=== PATIENT | female | born 1990 | race Asian ===

== ENCOUNTER → 2021-03-17 15:31 | Outpatient (CLI) | payer OTHER, SELFPAY ==
[2021-03-17 16:12] LABS: Add Manual Diff / Slide Review NO; Basophils Absolute Auto 0 /uL (0-100); Basophils Percent Auto 0.4 % (0-2); Eosinophils Absolute Auto 100 /uL (0-450); Eosinophils Percent Auto 0.7 % (2-4); Hematocrit 41.7 % (36-46); Hemoglobin 13.7 g/dL (12.0-16.0); Lymphocytes Absolute Auto 2300 /uL (1100-4500); Lymphocytes Percent Auto 19.2 % (25-40); Mean Corpuscular HGB Conc 32.9 % (30-36); Mean Corpuscular Hemoglobin 28.9 PG (26-34); Mean Corpuscular Volume 87.8 fL (80-100); Monocytes Absolute Auto 700 /uL (0-900); Neutrophils Absolute Auto 8800 /uL (1500-7000); Neutrophils Percent Auto 73.7 % (50-75); Platelet Count 333 X10^3/uL (150-400); Red Blood Cell Count 4.75 X10^6/uL (4.0-5.2); Red Cell Distribution Width 13.4 % (11.6-14.8); White Blood Cell Count 11.9 X10^3/uL (4.5-11.0)
[2021-03-17 18:12] LABS: Appearance Urine UA CLEAR; Bilirubin Urine UA NEGATIVE (NEGATIVE); Color Urine UA YELLOW; Glucose Urine UA NEGATIVE (Negative); Ketones Urine UA NEGATIVE (NEGATIVE); Leukocyte Esterase Urine UA NEGATIVE (NEGATIVE); Nitrite Urine UA NEGATIVE (Negative); Occult Blood Urine UA TRACE-LYSED (Negative); Protein Urine UA NEGATIVE (Negative); Specific Gravity Urine UA <=1.005 (1.000-1.035); Urobilinogen Urine UA 0.2 E.U./dL (0.2)
[2021-03-18 12:09] LABS: RPR Screen Non Reactive (Non Reactive); Varicella IgG Antibody 704 index (Immune >165)
[2021-03-20 16:20] LABS: Hep C Virus Ab w/Reflex Quant NEGATIVE s/c (NEGATIVE); Hepatitis B Surface Antigen NEGATIVE s/c (NEGATIVE)
[2021-03-20 16:21] LABS: HIV 1 & 2 Ab/Ag 4th Gen Combo NEGATIVE (NEGATIVE); Rubella Antibody IgG 37.6 IU/mL (>15)
== END ==
PROVIDERS: Referring Provider Specialist; Visit Provider Specialist
DX: Z34.81 Encounter for supervision of other normal pregnancy, first trimester (principal)
CPT/HCPCS: 36415; 80055; 81003; 86787; 86803; 86850; 86900; 86901; 87086; 87389

== ENCOUNTER → 2021-04-13 09:09 | Outpatient (CLI) | payer OTHER, SELFPAY ==
[2021-04-13 13:47] LABS: Urine N gonorrhoeae NOT DETECTED
[2021-04-13 13:53] LABS: Urine Chlamydia NOT DETECTED
== END ==
PROVIDERS: Visit Provider Specialist
DX: Z34.81 Encounter for supervision of other normal pregnancy, first trimester (principal); Z3A.13 13 weeks gestation of pregnancy
CPT/HCPCS: 87491; 87591

== ENCOUNTER → 2021-05-11 08:26 | Outpatient (CLI) | payer OTHER, SELFPAY ==
[2021-05-13 18:37] LABS: AFP, Serum 30.9 ng/mL (.); Calc Gestational Age Ultrasound (.); Inhibin A, Dimeric 88.08 pg/mL (.); Maternal Ethnicity Other (.); Maternal Weight 161 lbs (.); Number of Fetuses No (.); OSBR Risk 1 IN 10000 (.); Results Report (.); Test Results *Screen Negative* (.); hCG, MoM 0.83 (.); hCG, Serum 25506 mIU/mL (.)
== END ==
PROVIDERS: Referring Provider Specialist; Visit Provider Specialist
DX: Z34.82 Encounter for supervision of other normal pregnancy, second trimester (principal); Z3A.17 17 weeks gestation of pregnancy
CPT/HCPCS: 36415; 82105; 82677; 84702; 86336

== ENCOUNTER → 2021-06-02 07:33 | Outpatient (CLI) | payer OTHER, SELFPAY ==
--- NOTE | 2021-06-02 07:34 | DI.US.S_ITS ---
PROCEDURE: US OB >= 14 WEEKS FETUS INDICATIONS: ANATOMY OUTSIDE/PRIOR DATING DATA: Last menstrual period (LMP): Unknown. LMP-based estimated date of delivery (ROBERT): Unknown . First dating scan (date and location): 03/17/2021, [facility] Estimated date of delivery (ROBERT) from first dating scan: 10/20/2021. TECHNIQUE: Real-time scanning was performed of the fetus, with image documentation and biometric measurements. Endovaginal scanning: Not performed COMPARISON: [facility], , OB <= 14 WEEKS FETUS, 03/17/2021, 15:11. [facility], , US OB >= 14 WEEKS FETUS, 05/11/2021, 8:13. FINDINGS: General: A single living intrauterine gestation is present. Presentation: Variable Placenta: Placental position is posterior , without previa. Amniotic fluid index: 16.8 cm, normal range is 5-24 cm. heart rate: 165 beats per minute. Maternal cervical canal: 6.0 cm long. Normal lower limit is 2.5 cm. biometrics: Biparietal diameter: 4.9 cm, 20 weeks 5 days Head circumference: 17.5 cm, 20 weeks 0 days Abdominal circumference: 16.7 cm, 21 weeks 5 days Femur length: 3.2 cm, 20 weeks 1 day Estimated gestational age from initial scan: not applicable. Composite gestational age from present scan: 20 weeks 5 days Estimated weight and percentile: 89th percentile Measurement variability for biometric dating: +/- 7 days from 14 weeks to 15 weeks 6 days gestation, +/- 10 days from 16 weeks to 21 weeks 6 days gestation, +/- 2 weeks from 22 weeks to 27 weeks 6 days gestation, +/- 3 weeks for 28 weeks gestation or later. weight reference: 4500 g or EFW >90/95% is considered macrosomia or large for gestational age. EFW <10% is small for gestational age. EFW 5% or less is considered intra-uterine growth restriction. Anatomic survey: Neuro: Ventricles are non-dilated at less than 10 mm. Cisterna magna is normal at 3-11 mm. Cerebellum is normal in size and morphology. Nuchal skin fold: Normal at less than 6 mm between 14-21 weeks gestational age. Face: Nose and lips, facial profile are normal. Spine: No evidence for spina bifida. Heart: 4-chambered heart is present, with normal ventricular outflow tracts. Left ventricular echogenic intracardiac focus. Diaphragm: Diaphragm is intact. Stomach: Left-sided stomach is present. Kidneys: No hydronephrosis. Normal is less than 5 mm in 2nd trimester, less than 7 mm in 3rd trimester. Cord: 3-vessel cord has orthotopic insertion. Bladder: Normal in size. Extremities: All 4 extremities identified. IMPRESSION: 1. Living single intrauterine 2nd trimester . 2. Current ultrasound age is 5 days greater than clinical age based on initial ultrasound. 3. Left ventricular echogenic intracardiac focus, typically an incidental finding. 4. Otherwise unremarkable anatomy scan. Dictated by: Norberto Adams M.D. on 06/02/2021 at 13:36 Approved by: Norberto Adams M.D. on 06/02/2021 at 14:13
== END ==
PROVIDERS: Referring Provider Specialist; Visit Provider Specialist
DX: Z34.82 Encounter for supervision of other normal pregnancy, second trimester (principal); Z3A.20 20 weeks gestation of pregnancy
CPT/HCPCS: 76811

== ENCOUNTER → 2021-07-14 14:47 | Outpatient (CLI) | payer OTHER, SELFPAY ==
[2021-07-14 16:56] LABS: Hematocrit 35.1 % (36-46); Hemoglobin 11.7 g/dL (12.0-16.0)
[2021-07-14 17:29] LABS: GTT (PREG) 1 Hour PP 50gm Dose 128 mg/dL (76-139)
== END ==
PROVIDERS: Referring Provider Specialist; Visit Provider Specialist
DX: Z34.82 Encounter for supervision of other normal pregnancy, second trimester (principal); Z3A.22 22 weeks gestation of pregnancy
CPT/HCPCS: 36415; 82950; 85014; 85018

== ENCOUNTER 2021-09-23 09:58 | Inpatient (IN) | payer OTHER, SELFPAY ==
--- NOTE | 2021-09-23 10:59 | PM.OBHP.IH.1 ---
OB HPI Date/Time Date of admission: 09/23/21 Date Patient Seen: 09/23/21 Time Patient Seen: 11:15 History of Present Condition Chief complaint: OBSERVATION ROBERT Calculator Estimated Delivery Date Method Current WG Current Estimate 10/18/21 Ultrasound #1 36w 3d Other Estimates 10/04/21 LMP (Certain) 38w 3d : 2 Para: 0 Narrative: 31-year-old at 36 weeks and 3 days gestation. She got up at approximately 9:00 a.m. this morning and had persistent leaking of clear fluid. She also had some slight bloody discharge. Baby has been active and she denies contractions. Fluid continues to leak. complicated by PUPP, otherwise uncomplicated care with Dr. Stein. care: good care, initiated at week # (9), number of visits (10) and pounds weight gain (32) Dating criteria OB: based on 1st trimester US only Ultrasounds: normal mid trimester US (Left ventricular echogenic intracardiac focus, otherwise normal anatomy, negative quad screen) Preadmission Labs Last OB Lab Results: Blood Type B Positive 03/17/21 15:34 03/17/21 Antibody Screen Negative 03/17/21 15:34 03/17/21 Hematocrit 35.1 % (36-46) L 07/14/21 15:58 07/14/21 Hemoglobin 11.7 g/dL (12.0-16.0) L 07/14/21 15:58 07/14/21 Hepatitis B Surface Antigen Negative s/c (NEGATIVE) 03/17/21 15:34 03/17/21 Hepatitis C Antibody Negative s/c (NEGATIVE) 03/17/21 15:34 03/17/21 Rubella Antibody 37.6 IU/mL (>15) 03/17/21 15:34 03/17/21 Varicella-Zoster IgG Antibody 704 index (Immune >165) 03/17/21 15:34 03/17/21 Glucose 1 Hour 128 mg/dL (76-139) 07/14/21 15:58 07/14/21 Group B Streptococcus (PCR) Pending 09/23/21 10:50 09/23/21 -: Chlamydia screen: negative and Gonorrhea screen: negative Genetic Screens: Quad screen: Normal Prior (ies) Past Pregnancies Del. Date GA/Weeks Labor Lgth Wt Sex Route Outcome Anesthesia Place Delv Breastfeed Preg Comp Name 03/12/17 6 Delivery Date: 03/12/17 Last Updated by: Little Berrios R.N. Had D&C to complete. Evaluation Evaluation Baseline heart rate: 140 Variability: Moderate (11-25) monitor accelerations: Present Monitor Decelerations: Absent Contraction Frequency (minutes): 3 Category of Tracing: Reactive Status: Category l Dilation (cm): 1 Effacement: 60-70% station: -1 Non-invasive Membranes Rupture Test: positive [facility] Medical History Fibroids (~2016) Hyperlipidemia (~07/2020) Hypertension (~07/2020) Left knee dislocation (~10/2020) Miscarriage (~2016) Palpitations (~2019) PCOS (polycystic ovarian syndrome) (~2009) Scoliosis (~2009) Surgical History H/O removal of cyst (~2019) History of removal of skin mole (~02/21/21) [place] teeth removed (~2017) Family History Mother Hypertension Hyperlipidemia High triglycerides Father Diabetes mellitus Stroke Kidney failure Hypertension Myocardial infarction Grandmother Hypertension Grandfather Congestive heart failure Hypertension Diabetes mellitus High triglycerides Grandmother Hypertension Diabetes mellitus Hyperlipidemia Grandfather Hypertension Diabetes mellitus Sister Hypertension affecting Diabetes mellitus Hypertension Social History marital status: number of children: 0 household members: spouse lives independently: Yes (Base housing. 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 ) substance use type: does not use during the past year weight has: increased > 10 lbs well-balanced diet: daily or most days daily servings fruits/ve or more times/day caffeine: No Type(s) of exercise: none Meds Home Medications and Allergies Home Medications Medication Instructions Recorded Confirmed Type aspirin 81 mg chewable tablet 81 mg PO DAILY #30 tab 04/13/21 09/19/21 Rx prenat.vits,viviana,qjj-[id number] 1 tab PO DAILY #30 tab 04/13/21 09/19/21 Rx fluconazole 150 mg tablet 150 mg PO Q3D #2 tab 08/17/21 09/19/21 Rx (Diflucan) cetirizine 10 mg capsule 10 mg PO DAILY PRN #30 cap 09/12/21 09/19/21 Rx Allergies Allergy/AdvReac Type Severity Reaction Status Date / Time No Known Drug Allergies Allergy Verified 09/19/21 09:48 Review of Systems Review of Systems ROS: Yes All systems reviewed with the patient and are negative except as otherwise documented OB Exam Narrative Exam Narrative: Temperature 36.2? blood pressure 137/81 heart rate 107 HENMT Head: normal to inspection Mouth: oral mucosae normal Eyes General: appearance normal, both eyes and all related structures Resp Effort & Inspection: normal respiratory effort Auscultation: clear to auscultation bilaterally Cardio Rate: regular rate Rhythm: regular rhythm Heart Sounds: S1 normal and S2 normal Extremities Lower extremity: No normal to inspection (Erythematous macules and papules over lower extremities) Presentation: vertex Estimated Weight (lbs): 6 Amniotic Fluid: clear Assessment and Plan Assessment and Plan Assessment and Plan narrative: 31-year-old at 36 weeks and 3 days with spontaneous rupture of membranes at home with clear fluid at 9:00 a.m.. She is romeo though not yet in labor. GBS is pending. Discussed increased risk of infection given rupture of membranes and recommended initiation of Pitocin 4 hours from rupture if not yet entering labor on her own. She may eat lunch now then will plan to start Pitocin at 1:00 p.m.. Will obtain at labs and COVID swab now. Epidural upon request. Anticipate .
[2021-09-23 12:05] LABS: Add Manual Diff / Slide Review NO; Basophils Absolute Auto 300 /uL (0-100); Basophils Percent Auto 3.1 % (0-2); Eosinophils Absolute Auto 400 /uL (0-450); Eosinophils Percent Auto 4.4 % (2-4); Hematocrit 41.2 % (36-46); Hemoglobin 13.9 g/dL (12.0-16.0); Lymphocytes Absolute Auto 800 /uL (1100-4500); Lymphocytes Percent Auto 7.9 % (25-40); Mean Corpuscular HGB Conc 33.7 % (30-36); Mean Corpuscular Hemoglobin 30.1 PG (26-34); Mean Corpuscular Volume 89.4 fL (80-100); Monocytes Absolute Auto 400 /uL (0-900); Monocytes Percent Auto 3.9 % (3-14); Neutrophils Absolute Auto 7700 /uL (1500-7000); Neutrophils Percent Auto 80.7 % (50-75); Platelet Count 237 X10^3/uL (150-400); Red Cell Distribution Width 15.5 % (11.6-14.8); White Blood Cell Count 9.5 X10^3/uL (4.5-11.0)
[2021-09-23 12:07] LABS: Strep Grp B PCR NEG for Grp B Strep
[2021-09-23 12:19] LABS: COVID19 -Nasal RAPID Negative (Negative)
[2021-09-23] MEDS: BETAMETHASONE 30 MG/5 ML MDV 12 MG IM (12:45)
[2021-09-23] MEDS: LACTATED RINGERS 1,000 ML 100 ML IV (14:03)
[2021-09-23] MEDS: OXYTOCIN PREMIX 30 UNIT/500 ML PLAST..BAG IV (14:04)
--- NOTE | 2021-09-23 17:45 | PM.OBPNLAB ---
Date/Time Date Patient Seen: 09/23/21 Time Patient Seen: 17:15 Pain Control Pain control: tolerating well Pelvic Exam station: -1 Comments: exam deferred due to PROM, patient starting to feel contractions Contractions Pitocin rate (mU/min): 4 Contraction frequency (min): 2 Contraction pattern: Regular Status status: Category l Heart Rate Baseline: 130 Monitor Accelerations: Present Monitor Decelerations: Absent Monitor Variability: Moderate Comments: VSS Assessment and Plan Assessment: induction ongoing Plan: continuous present management Comments: This patient presented with PPROM, romeo asymptomatically and augmented with pitocin. Patient would like epidural eventually, for cervical exam at that time.
[2021-09-23 18:49] VITALS: BP 126/53
[2021-09-24] VITALS (8 sets, daily range): BP systolic 91–115; BP diastolic 48–62; PULSE 113–121; RESP 20–25; TEMP 36.3–37.5; O2SAT 98–100
[2021-09-24] MEDS: ePHEDrine 50 MG/ML VIAL 10 MG IV (01:56)
[2021-09-24] MEDS: FENT 2MCG/ML BUPIV 0.125% EPI 200 MCG/100 ML PLAST..BAG 12 MCG EPIDURAL (02:51)
--- NOTE | 2021-09-24 05:52 | P.PNOB_ITS ---
Date/Time Date Patient Seen: 09/24/21 Time Patient Seen: 05:52 Pelvic Exam Dilation (cm): 9 Effacement (%): 100 station: 0 Amniotic membrane status: Ruptured Contractions Contraction frequency (min): 3 Contraction pattern: Regular Status status: Category ll Heart Rate Baseline: 145 Monitor Accelerations: Present Monitor Decelerations: Absent Monitor Variability: Minimal (period of minimal and moderate variability) Comments: + scalp stim Assessment and Plan Plan: continuous present management Comments: 31 year old at 36 weeks and 4 days gestation who presented with PPROM. She has progressed well overnight but has had issues with hypotension secondary to epidural with subsequent late decelerations. Decelerations resolve with ephedrine and fluid boluses. Pitocin was shut off however now no cervical change number operator the last hour. Will restart pitocin and utilize the peanut ball to help with descent.
[2021-09-24] MEDS: LACTATED RINGERS 1,000 ML 100 ML IV ×4 (08:40→23:24)
--- NOTE | 2021-09-24 10:19 | PM.OBPNLAB ---
Date/Time Date Patient Seen: 09/24/21 Time Patient Seen: 09:20 Pain Control Pain control: tolerating well and epidural Pelvic Exam Dilation (cm): 10 Effacement (%): 100 station: +1 Amniotic membrane status: Ruptured Contractions Pitocin rate (mU/min): 14 Contraction frequency (min): 4 Contraction pattern: Regular Status status: Category l Heart Rate Baseline: 135 Monitor Accelerations: Present Monitor Decelerations: Absent Monitor Variability: Moderate Assessment and Plan Comments: Begin pushing.
--- NOTE | 2021-09-24 12:38 | PM.OBPNLAB ---
Date/Time Date Patient Seen: 09/24/21 Time Patient Seen: 13:00 Pain Control Pain control: epidural Pelvic Exam Dilation (cm): 10 Effacement (%): 100 station: +1 Amniotic membrane status: Ruptured Contractions Contraction pattern: Regular Status status: Category l Assessment and Plan Comments: Patient has been pushing for 3 hours with good effort but minimal descent. She is ROT with significant caput and molding and a markedly narrow pubic arch. Cesaerean section was discussed with the patient by Dr. Espino and consents were signed.
--- NOTE | 2021-09-24 12:45 | PM.OBPNLAB ---
Date/Time Date Patient Seen: 09/24/21 Time Patient Seen: 12:30 Pain Control Pain control: tolerating well and epidural Pelvic Exam Dilation (cm): 10 Effacement (%): 100 station: +1 Amniotic membrane status: Ruptured Contractions Pitocin rate (mU/min): 18 Contraction frequency (min): 3 Contraction pattern: Regular Status status: Category l Heart Rate Baseline: 145 Monitor Accelerations: Present Monitor Decelerations: Early Monitor Variability: Moderate Assessment and Plan Plan: Comments: 31 year old at 36 weeks and 4 days gestation who presented with PPROM. She has now been ruptured over 24 hours and approaching 24 hours of pitocin. No significant descent despite pushing for three hours. Will proceed with low transverse section for arrest of descent. Dr. Quintero consulted. Will give cefazolin and azithromycin prior to surgery. Discussed risks including bleeding, infection and injury to bowel, bladder or surrounding organs. All questions answered, consent signed.
--- NOTE | 2021-09-24 12:50 | PM.PREOP ---
Pre-operative Note COVID-19 COVID-19 status: Negative Result date/Date tested (Pos, Neg/Pending): 09/23/21 Interval Note History & Physical reviewed/Exam performed by Physician: Yes Changes to H&P: No
[2021-09-24] MEDS: AZITHROMYCIN 500 MG in DEXTROSE 5% IN WATER 250 ML IV (13:26)
[2021-09-24] MEDS: CEFAZOLIN 2 GM/20 ML SYRINGE IV (13:42)
--- NOTE | 2021-09-24 13:53 | SUR.OPER ---
Supine on Padded OR bed, head on pillow, safety belt at thigh, arms secured on padded arm boards at <90 degrees abduction. Bump under right buttock. Legs uncrossed with pillow under knees, gel pad to heels, tape over blanket to lower legs.
--- NOTE | 2021-09-24 14:01 | SUR.OPER ---
Viable female delivered at 1350. Placenta and cord blood sent with L&D nurse.
--- NOTE | 2021-09-24 14:52 | P.OP_ITS ---
Operative Date/Time/Diagnoses Date of procedure: 09/24/21 Time of procedure: 14:52 Pre-op diagnosis: arrest of descent Post-op diagnosis: same Procedure & Clinicians Procedure: primary section Same procedure as scheduled: Yes Indications: arrest of descent Surgeon: Tyra Quintero Web Marketing Coordinator: Neris Espino Reason for Web Marketing Coordinator: Assistance with delivery of impacted vertex, retraction, and suturing Anesthesia Type: Epidural Operative Notes Findings: Female infant in cephalic, ROT presentation. Apgars 9+9, weight 6#13. Normal uterus, tubes, ovaries. Closure Type: primary Specimen(s): cord blood Estimated Blood Loss (mL): 600 Procedure in detail: EBL: 600ccs Fluids:2000ccs UOP: 400ccs clear urine Procedures: The patient was taken to the operating room where epidural anesthesia was bolused and found to be adequate. She was prepped and draped in the normal sterile fashion in the dorsal supine position with a leftward tilt. A Pfannenstiel skin incision was made with a scalpel and carried through to the underlying layer of fascia. The fascia was incised in the midline and the incision extended laterally with Dan scissors. The superior aspect of this incision was grasped with Thang clamps, elevated, and the underlying rectus muscles dissected off bluntly and with the curved Dan scissors. Attention was then turned to the inferior aspect of this incision which, in a similar fashion, was grasped, tented up with the Thang clamps, and the rectus muscles dissected off bluntly and with the curved Dan scissors. The rectus muscles were then in the midline, and the peritoneum identified, tented up, and entered sharply with Metzenbaum scissors. The peritoneal incision was extended superiorly and inferiorly with good visualization of the bladder. The bladder blade was inserted and the vesicouterine peritoneum identified, grasped with pickups, and entered sharply with the Metzenbaum scissors. This incision was extended laterally, and the bladder flap created digitally. The bladder blade was then reinserted and the lower uterine segment incised in transverse fashion with the scalpel. The uterine incision was bluntly extended laterally. The bladder blade was removed, and the 's head delivered atraumatically. After 30 seconds of delayed cord clamping, the cord was clamped and cut. The nose and mouth were suctioned as needed with a bulb syringe, and the was handed off to awaiting pediatricians. The placenta was then removed spontaneously, and the uterus was exteriorized and cleared of all clots and debris. The uterine incision was repaired with 1-0 chr omic in a running, locked fashion and a 2nd layer of the same suture was used to obtain excellent hemostasis. The uterus was returned to the abdomen, and the gutters were cleared of all clots and debris. The bladder flap was closed with 2-0 Vicryl in a running fashion, the peritoneum was closed with 3-0 Vicryl, and the fascia reapproximated with 0 Vicryl in a running fashion. The subcutaneous layer was placed with 3 0 Vicryl in an interrupted fashion and the skin was closed with 4-0 biosyn in a running fashion. The patient tolerated the procedure well. sponge lap and needle counts were marlo ect x2. 2 g of Ancef and 500mg azithromycin were given at commencement of the case. A betadine prep was performed at the beginning of the case. The patient was taken to the recovery room in stable condition. Complications: none [place] Baby 1: Gender: Female Presentation: vertex Position: Right Occiput Transverse Placental Delivery Description: Manual Removal Cord Vessel Description: 3 Vessels score (1 min): 9 score (5 min): 9 weight: 6 lb 13 oz Post-operative Condition: stable Disposition: PACU Aftercare: routine postop
[2021-09-24] MEDS: MEPERIDINE 50 MG/ML INJ 12.5 MG IV (15:22)
--- NOTE | 2021-09-24 15:54 | SUR.PHASEI ---
1455 Dr Rubalcava by to check on patient. Informed of shaking and HR of 120. No new orders at this time. [address] Rubalcava. Informed of patient spinal lever at C5 and down to t4 with patient shaking HR 120-125 regular. See new order for Demerol IV. 1525 Shaking resolved after Demerol given. Pt able to take ice chips and sips of apple juice. 1540 Patient transferred in bed to with updated SBAr report at bedside to Elsa JENKINS. Fundal check done together with fundus at umbilicus, no drainage to joel-pad and small amt of sang drainage on surgical dressing. Graham with clear yellow urine 775ml out in PACU. Bed in low position. at bedside with baby.
[2021-09-24] MEDS: KETOROLAC 30 MG/ML VIAL IV ×2 (16:31→22:30)
[2021-09-24] MEDS: LANOLIN OINT 7 GM 1 APPLIC TOP (22:09)
[2021-09-24] MEDS: OXYCODONE IR 5 MG TABLET PO (22:10)
[2021-09-24] MEDS: diphenhydrAMINE 25 MG TABLET PO (22:10)
[2021-09-24] MEDS: ACETAMINOPHEN 325 MG TABLET 650 MG PO (22:10)
[2021-09-25] MEDS: ACETAMINOPHEN 325 MG TABLET 650 MG PO ×3 (03:01→17:57)
[2021-09-25] MEDS: OXYCODONE IR 5 MG TABLET PO ×2 (03:02→23:09)
[2021-09-25] MEDS: KETOROLAC 30 MG/ML VIAL IV ×2 (04:39→12:30)
[2021-09-25 06:58] LABS: Hemoglobin 10.4 g/dL (12.0-16.0)
--- NOTE | 2021-09-25 08:22 | PM.OBPN.1 ---
Subjective - OB Subjective Patient comments: no complaints, incisional pain, tolerating diet and flatus present baby status: doing well [place] feeding status: breast and bottle feeding Date Patient Seen: 09/25/21 Time Patient Seen: 08:15 Interval history: Denies complaints. She is ambulating and passing flatus. Catheter was just removed this morning so she has not voided yet. Vaginal bleeding is moderate is expected. Pain well controlled. She is opting to breast and bottle feed. Exam Vital Signs (past 8 hours): Oxygen Delivery Method Room Air Temperature 97.1? blood pressure 106/64 heart rate 90 respirations 18 Narrative Exam Narrative: General: Awake and alert, no acute distress. HEENT: NCAT, EOMI, moist oral mucosa CV: Regular rate and rhythm, no murmurs, rubs or gallops Lungs: CTAB, no wheezes, rales, or rhonchi Abdomen: Aquacel dressing intact moderate drainage. Soft, nontender; bowel tones active; uterus firm 1 cm below umbilicus Extremities: Warm, no edema bilaterally Objective Labs Result Diagrams: 09/25/21 06:30 Labs: Laboratory Results - last 24 hr 09/25/21 06:30 Hgb 10.4 L Hct 31.0 L Assessment & Plan Plan day: 1 plan OB: routine postop care Comments: 31-year-old after primary for failure to descend. She is doing well without complications. Anticipate discharge home tomorrow. Time Spent With Patient Time: Total time spent is greater than 50% in coordination of care (as documented) at patient's floor/unit and/or counseling patient: Time with patient: less than 15 minutes
[2021-09-25] MEDS: DOCUSATE 100 MG CAPSULE 200 MG PO (12:29)
[2021-09-25] MEDS: PRENATAL VIT,CALC/IRON/FOLIC 1 TABLET 1 TAB PO (12:29)
[2021-09-25] MEDS: HYDROCORTISONE 2.5% CREAM 30 GM 1 APPLIC TOP (12:32)
[2021-09-25] MEDS: IBUPROFEN 600 MG TABLET PO (17:58)
[2021-09-25] MEDS: diphenhydrAMINE 25 MG TABLET PO (23:09)
[2021-09-26] MEDS: IBUPROFEN 600 MG TABLET PO ×2 (00:23→12:28)
--- NOTE | 2021-09-26 09:19 | PM.OBDS.1 ---
Discharge Providers Provider Date of admission: 09/23/21 09:58 Discharge Date: 09/26/21 Primary care physician: Trudy Stein MD Consults: 09/25/21 05:00 Consult to Train Control Technician Routine Comment: Discharge provider: Tyra Quintero MD Summary Time Spent with Patient Time attestation: Total time spent providing and/or coordinating discharge services: Objective Labs Result Diagrams: 09/25/21 06:30 Exam Vital Signs (past 8 hours): Oxygen Delivery Method Room Air Discharge Plan Discharge Plan Patient Disposition: Home Discharge orders & Medications Prescriptions: New oxycodone 5 mg tablet 5 mg PO Q6H PRN (Reason: pain) Qty: 20 0RF Rx Instructions: Take as often as every 6 hours for pain. ibuprofen 600 mg tablet 600 mg PO Q6H PRN (Reason: section) Qty: 30 0RF Rx Instructions: Take as often as every 6 hours for pain. Continued cetirizine 10 mg capsule 10 mg PO DAILY PRN (Reason: itching) Qty: 30 1RF prenat.vits,viviana,[id number] Tablet 1 tab PO DAILY Qty: 30 11RF fluconazole [Diflucan] 150 mg tablet 150 mg PO Q3D Qty: 2 0RF Discontinued aspirin 81 mg tablet,chewable 81 mg PO DAILY Qty: 30 5RF Follow up/Referrals: Trudy Stein MD [Primary Care Provider] - 1 Week (incision check) Diet/Activity/Treatments Diet: Regular Activity: Nothing in the vagina for 6 weeks. Avoid lifting more than 10 lbs for 6 weeks. If you have increasing bleeding, fevers, chills, nausea, vomiting, headaches, visual changes, or any other symptoms, call or come to the emergency room. Skin/Wound/Dressing Care Report to your healthcare provider any signs of infection, such as:: chills, fever, night sweats, increased pain, unusual drainage and unusual redness Dressing: To be removed at 1 week check. Can shower, let water run over incision and pat dry. Visit Report/Discharge Packet Instructions: DI for Discharge Data Primary Care Provider: Trudy Stein
--- NOTE | 2021-09-26 09:23 | P.DS_ITS ---
Discharge Providers Provider Date of admission: 09/23/21 09:58 Discharge Date: 09/26/21 Primary care physician: Trudy Stein MD Consults: 09/25/21 05:00 Consult to [employer] Clerk Routine Comment: Discharge provider: Tyra Quintero MD Summary Hospital Course Date Patient Seen: 09/26/21 Time Patient Seen: 08:30 Diagnoses: s/p primary section for second stage arrest Hospital Course: This patient was admitted after PPROM at 36+3. She was induced with pitocin after she did not labor spontaneously. She progressed to fully dilted, and after pushing for 3 hours with good effort, the vertex remained at 1+ station. She was taken for primary section, which was uncomplicated. Her recovery was uncomplicated, and she was discharged on POD#2 with routine precautions and follow up. Peripartum Data Delivery Method: Section complications: none [place] 1: Gender: Female Disposition of : home Status at Discharge Cognitive/behavioral status at discharge: oriented Functional status at discharge: independent ambulation Overall status at discharge: patient is progressing back to baseline Time Spent with Patient Time attestation: Total time spent providing and/or coordinating discharge services: Objective Labs Result Diagrams: 09/25/21 06:30 Exam Vital Signs (past 8 hours): 129/81, HR 86, afebrile Oxygen Delivery Method Room Air Narrative Exam Narrative: Patient resting in bed, feeling well with good pain control. Mild lochia, voiding, passing flatus, pumping and bottle feeding. No PIH symptoms, chest pain, leg pain. Const General: cooperative, healthy appearing and comfortable Resp Effort & Inspection: normal respiratory effort Auscultation: clear to auscultation bilaterally Cardio Rate: regular rate Rhythm: regular rhythm GI Inspection: incision (c/d/i. Bandage soaked with old dried blood and replaced, no active bleeding) Palpation: soft and No tender Extrem Other: MIGUELINA 1+ bilaterally, PUPPS rash improving Discharge Plan Discharge Plan Patient Disposition: Home Discharge orders & Medications Prescriptions: New ibuprofen 600 mg tablet 600 mg PO Q6H PRN (Reason: section) Qty: 30 0RF Rx Instructions: Take as often as every 6 hours for pain. oxycodone 5 mg tablet 5 mg PO Q6H PRN (Reason: pain) Qty: 20 0RF Rx Instructions: Take as often as every 6 hours for pain. Continued cetirizine 10 mg capsule 10 mg PO DAILY PRN (Reason: itching) Qty: 30 1RF prenat.vits,viviana,[id number] Tablet 1 tab PO DAILY Qty: 30 11RF fluconazole [Diflucan] 150 mg tablet 150 mg PO Q3D Qty: 2 0RF Discontinued aspirin 81 mg tablet,chewable 81 mg PO DAILY Qty: 30 5RF Follow up/Referrals: Trudy Stein MD [Primary Care Provider] - 1 Week (incision check on 10/04/21 @[address] Stein) Diet/Activity/Treatments Diet: Regular Activity: Nothing in the vagina for 6 weeks. Avoid lifting more than 10 lbs for 6 weeks. If you have increasing bleeding, fevers, chills, nausea, vomiting, headaches, visual changes, or any other symptoms, call or come to the emergency room. Skin/Wound/Dressing Care Report to your healthcare provider any signs of infection, such as:: chills, fever, night sweats, increased pain, unusual drainage and unusual redness Dressing: To be removed at 1 week check. Can shower, let water run over incision and pat dry. Visit Report/Discharge Packet Instructions: DI for Discharge Data Primary Care Provider: Trudy Stein
[2021-09-26] MEDS: PRENATAL VIT,CALC/IRON/FOLIC 1 TABLET 1 TAB PO (12:28)
[2021-09-26] MEDS: DOCUSATE 100 MG CAPSULE 200 MG PO (12:28)
[2021-09-26] MEDS: ACETAMINOPHEN 325 MG TABLET 650 MG PO (12:29)
[2021-09-26 12:57] VITALS: BP 115/56; PULSE 115; RESP 20; TEMP 37.4
== END 2021-09-26 13:15 | disposition home or self-care (01) | DRG 788 ==
PROVIDERS: Obstetrics & Gynecology; Admitting Provider Family Medicine; PCP Specialist; Referring Provider Family Medicine; Visit Provider Family Medicine
PROC: 10D00Z1 Extraction of Products of Conception, Low, Open Approach (ICD-10-PCS; CPT 59514; principal; 2021-09-24 13:00)
DX: O42.113 Preterm premature rupture of membranes, onset of labor more than 24 hours following rupture, third trimester (principal); O64.8XX0 Obstructed labor due to other malposition and malpresentation, not applicable or unspecified; Z3A.36 36 weeks gestation of pregnancy; Z37.0 Single live birth; O16.4 Unspecified maternal hypertension, complicating childbirth; Z20.822 Contact with and (suspected) exposure to COVID-19
CPT/HCPCS: 36415; 59050; 59510; 59514; 85014; 85018; 85025; 86850; 86900; 86901; 87635; 87653; C9803; G0379; J0690; J0702; J1885; J2175; J2274; J2405; J2590; J3010

== ENCOUNTER → 2021-11-08 15:54 | Outpatient (CLI) | payer OTHER, SELFPAY ==
[2021-11-08 16:56] LABS: Add Manual Diff / Slide Review NO; Basophils Absolute Auto 0 /uL (0-100); Basophils Percent Auto 0.4 % (0-2); Eosinophils Absolute Auto 100 /uL (0-450); Eosinophils Percent Auto 1.9 % (2-4); Hematocrit 43.1 % (36-46); Hemoglobin 14.1 g/dL (12.0-16.0); Lymphocytes Absolute Auto 2100 /uL (1100-4500); Mean Corpuscular HGB Conc 32.9 % (30-36); Mean Corpuscular Volume 88.4 fL (80-100); Monocytes Absolute Auto 500 /uL (0-900); Monocytes Percent Auto 6.4 % (3-14); Neutrophils Absolute Auto 5200 /uL (1500-7000); Neutrophils Percent Auto 65.3 % (50-75); Platelet Count 305 X10^3/uL (150-400); Red Blood Cell Count 4.87 X10^6/uL (4.0-5.2); Red Cell Distribution Width 13.6 % (11.6-14.8); White Blood Cell Count 7.9 X10^3/uL (4.5-11.0)
[2021-11-08 17:31] LABS: Alanine Aminotransferase 36 IU/L (<35); Albumin 4.7 g/dL (3.5-5.0); Albumin Globulin Ratio 1.2 (1.0-2.8); Alkaline Phosphatase 64 U/L (38-126); Aspartate Aminotransferase 37 IU/L (14-36); BUN Creatinine Ratio 11.4 (6-22); Bilirubin Total 0.4 mg/dL (0.2-1.3); Blood Urea Nitrogen 8 mg/dL (7-17); Calcium 9.2 mg/dL (8.4-10.2); Carbon Dioxide 29 mmol/L (22-32); Chloride 105 mmol/L (98-107); Estimated Glomerular Filt Rate > 60.0 mL/min (>60); Globulin 3.9 g/dL (1.7-4.1); Glucose 99 mg/dL (70-100); HEMOLYSIS < 15 (0-50); Potassium 4.4 mmol/L (3.4-5.1); Sodium 140 mmol/L (137-145); Total Protein 8.6 g/dL (6.3-8.2)
[2021-11-08 17:59] LABS: TSH w/ Reflex to FT4 2.38 uIU/mL (0.47-4.68)
== END ==
PROVIDERS: PCP Specialist; Referring Provider Specialist; Visit Provider Specialist
DX: R42 Dizziness and giddiness (principal)
CPT/HCPCS: 36415; 80053; 84443; 85025